=== PATIENT | female | born 1960 | race Caucasian/White ===

== ENCOUNTER → 2016-12-13 | Day surgery (SDC) | payer OTHER ==
[~2016-12-13] MED LIST: ADVIL200 M3 PO; TEA TREE TOP; ZYRTEC10 M1 PO
--- NOTE | ~2016-12-13 | OR ---
Unit #: [id number] #: [id number] Patient: ASHLEY SAVAGE [id number] [address] [address] [id number] O MR#: [id number] NAME: ASHLEY SAVAGE ROOM: Date of Procedure: 12/13/2016 Admission Date: 12/13/2016 Surgeon: Sky Day III, M.D. : 1960 Attending Physician: Sky Day III, M.D. Referring Physician: Sky Day III, M.D. Primary Care Physician: Audrey Byrnes Aprn OPERATIVE REPORT PREOPERATIVE DIAGNOSIS Symptomatic cholelithiasis. POSTOPERATIVE DIAGNOSIS Symptomatic cholelithiasis. PROCEDURE PERFORMED Laparoscopic cholecystectomy. ANESTHESIA General. SPECIMENS Gallbladder to Pathology. COMPLICATIONS None apparent. ESTIMATED BLOOD LOSS Minimal. INDICATIONS FOR PROCEDURE This is a 56-year-old lady, who was seen in the office by Dr. Mclaughlin with symptomatic cholelithiasis. She is here today for laparoscopic cholecystectomy. DESCRIPTION OF PROCEDURE After consent was obtained, the patient was brought to the operating room and placed in the supine position. General anesthetic was administered and her abdomen was prepped and draped in standard surgical fashion. I made a 5-mm incision in the right upper quadrant. I used an Optiview to enter into the peritoneal cavity without any difficulty. CO2 pneumoperitoneum was then established. Next, a second 5-mm port was placed in the infraumbilical location. An 11-mm port was placed in the midepigastric region and a third 5-mm port was placed in the right lateral subcostal region. I began by retracting the gallbladder superiorly and laterally. I dissected out the cystic duct and cystic artery and after these were carefully identified, I placed two clips proximally and one clip distally along both structures and then they were divided. The gallbladder was then taken off the liver bed using the hook cautery. The gallbladder was then extracted through the epigastric port site without dilatation of the fascia. I had excellent hemostasis and all needle, sponge, and instrument counts were correct x2. I then removed all the Unit #: [id number] #: [id number] Patient: SAVAGEASHLEY HARMONcars and released the pneumoperitoneum. I injected all the port sites with 0.25% plain Marcaine and reapproximated the skin edges with interrupted 4-0 Vicryl subcuticular suture. Steri-Strips were then applied. The patient tolerated the procedure without any problems and returned to the recovery room in stable condition. Dictated by... Sky Day III, M.D. VCL/amol TD: 12/15/2016 11:40 JOB #: [id number] OPERATIVE REPORT Page 1 of 1 X Sky Day III, MD PROCEDURE OPERATIVE NOTE
== END | disposition home or self-care (01) ==
LOC: CSUR 06:17
DX: K80.10 Calculus of gallbladder with chronic cholecystitis without obstruction (principal); K82.8 Other specified diseases of gallbladder; Z87.891 Personal history of nicotine dependence; Z88.0 Allergy status to penicillin; Z91.018 Allergy to other foods; Z98.51 Tubal ligation status
CPT/HCPCS: 88304; J0330; J1100; J1644; J1885; J2250; J2405; J2710; J3010